=== PATIENT | female | born 1980 | race Caucasian/White ===

== ENCOUNTER → 2018-03-10 | Outpatient (CLI) | payer OTHER | END | disposition home or self-care (01) | LOC: WOUND 13:22 | PROVIDERS: ATTEND Family Medicine | DX: L97.212 Non-pressure chronic ulcer of right calf with fat layer exposed (principal); Z87.891 Personal history of nicotine dependence | CPT/HCPCS: 11100; 87070; 87077; 87186; 87205; 97602; 99215 ==

== ENCOUNTER → 2018-03-17 | Outpatient (CLI) | payer OTHER | END | disposition home or self-care (01) | LOC: WOUND 09:13 | PROVIDERS: ATTEND Family Medicine | DX: L97.212 Non-pressure chronic ulcer of right calf with fat layer exposed (principal); I87.2 Venous insufficiency (chronic) (peripheral); Z87.891 Personal history of nicotine dependence | CPT/HCPCS: 87070; 87077; 87186; 87205; 97597; 97598 ==

== ENCOUNTER → 2018-03-24 | Outpatient (CLI) | payer OTHER | END | disposition home or self-care (01) | LOC: WOUND 09:29 | PROVIDERS: ATTEND Family Medicine | DX: L97.212 Non-pressure chronic ulcer of right calf with fat layer exposed (principal); I87.2 Venous insufficiency (chronic) (peripheral); Z87.891 Personal history of nicotine dependence | CPT/HCPCS: 11042; 11045 ==

== ENCOUNTER → 2018-04-07 | Outpatient (CLI) | payer OTHER | END | disposition home or self-care (01) | LOC: WOUND 09:00 | PROVIDERS: ATTEND Family Medicine | DX: L97.212 Non-pressure chronic ulcer of right calf with fat layer exposed (principal); I87.2 Venous insufficiency (chronic) (peripheral); Z87.891 Personal history of nicotine dependence | CPT/HCPCS: 11042; 11045 ==

== ENCOUNTER → 2018-04-14 | Outpatient (CLI) | payer OTHER | END | disposition home or self-care (01) | LOC: WOUND 09:59 | PROVIDERS: ATTEND Family Medicine | DX: L97.212 Non-pressure chronic ulcer of right calf with fat layer exposed (principal); I87.2 Venous insufficiency (chronic) (peripheral); Z87.891 Personal history of nicotine dependence | CPT/HCPCS: 11042; 11045 ==

== ENCOUNTER → 2018-04-21 | Outpatient (CLI) | payer OTHER | END | disposition home or self-care (01) | LOC: WOUND 09:11 | PROVIDERS: ATTEND Family Medicine | DX: L97.212 Non-pressure chronic ulcer of right calf with fat layer exposed (principal); I87.2 Venous insufficiency (chronic) (peripheral); Z87.891 Personal history of nicotine dependence | CPT/HCPCS: 97597; 97598 ==

== ENCOUNTER → 2018-04-28 | Outpatient (CLI) | payer OTHER | END | disposition home or self-care (01) | LOC: WOUND 09:04 | PROVIDERS: ATTEND Family Medicine | DX: L97.212 Non-pressure chronic ulcer of right calf with fat layer exposed (principal); I87.2 Venous insufficiency (chronic) (peripheral); Z87.891 Personal history of nicotine dependence | CPT/HCPCS: 99214 ==

== ENCOUNTER → 2018-05-12 | Outpatient (CLI) | payer OTHER | END | disposition home or self-care (01) | LOC: WOUND 08:13 | PROVIDERS: ATTEND Family Medicine | DX: L97.212 Non-pressure chronic ulcer of right calf with fat layer exposed (principal); I87.2 Venous insufficiency (chronic) (peripheral); Z87.891 Personal history of nicotine dependence | CPT/HCPCS: 99214 ==

== ENCOUNTER → 2018-05-19 | Outpatient (CLI) | payer OTHER | END | disposition home or self-care (01) | LOC: WOUND 08:27 | PROVIDERS: ATTEND Family Medicine | DX: L97.212 Non-pressure chronic ulcer of right calf with fat layer exposed (principal); I87.2 Venous insufficiency (chronic) (peripheral); Z87.891 Personal history of nicotine dependence | CPT/HCPCS: 99213 ==

== ENCOUNTER 2018-05-22 10:56 | Outpatient (CLI) | payer OTHER | END 2018-05-22 23:59 | disposition home or self-care (01) | LOC: WOUND 10:56 | PROVIDERS: ATTEND Internal Medicine | DX: L97.212 Non-pressure chronic ulcer of right calf with fat layer exposed (principal); I87.2 Venous insufficiency (chronic) (peripheral); Z87.891 Personal history of nicotine dependence | CPT/HCPCS: 87070; 87077; 87186; 87205; 97597; 97598 ==

== ENCOUNTER 2018-05-26 08:35 | Outpatient (CLI) | payer OTHER ==
[2018-05-26] MEDS ORDERED: SULF1TAB24 PO (10:30)
[2018-05-26] MEDS ORDERED: GABA300C10 PO (10:30)
[2018-05-26] MEDS ORDERED: TRAM50TA2 PO (10:30)
== END 2018-05-26 23:59 | disposition home or self-care (01) ==
LOC: WOUND 08:35
PROVIDERS: ATTEND Family Medicine
DX: L97.212 Non-pressure chronic ulcer of right calf with fat layer exposed (principal); S81.801D Unspecified open wound, right lower leg, subsequent encounter; I87.2 Venous insufficiency (chronic) (peripheral); X58.XXXD Exposure to other specified factors, subsequent encounter; Z87.891 Personal history of nicotine dependence
CPT/HCPCS: 97597; 97598

== ENCOUNTER 2018-05-31 21:31 | Emergency (ER) | payer OTHER ==
[~2018-05-31] VITALS: Ht 162.6 cm; Wt 74.9 kg
[~2018-05-31 21:31] MED LIST: GABA300C10 PO; SULF1TAB24 PO; TRAM50TA2 PO
[2018-05-31 21:38] VITALS: BP 111/75
--- NOTE | 2018-05-31 22:19 | NUR ---
WOUND UNPACKED AND IRRIGATED WITH STERILE SALINE. PT HAD WOUND REPACKED WITH 1/4 INCH GAUZE, WITH 3 INCHES IN LENGTH. PT TOLERATED WELL. VSS
== END 2018-05-31 22:27 | disposition home or self-care (01) ==
LOC: ED 21:47
DX: L02.415 Cutaneous abscess of right lower limb (principal)
CPT/HCPCS: 99283

== ENCOUNTER → 2018-06-02 | Outpatient (CLI) | payer OTHER | END | disposition home or self-care (01) | LOC: WOUND 08:56 | PROVIDERS: ATTEND Family Medicine | DX: L97.212 Non-pressure chronic ulcer of right calf with fat layer exposed (principal); S81.801D Unspecified open wound, right lower leg, subsequent encounter; I87.2 Venous insufficiency (chronic) (peripheral); Z87.891 Personal history of nicotine dependence; X58.XXXD Exposure to other specified factors, subsequent encounter | CPT/HCPCS: 97597; 97598 ==

== ENCOUNTER → 2018-06-05 | Outpatient (CLI) | payer OTHER | END | disposition home or self-care (01) | LOC: WOUND 11:11 | PROVIDERS: ATTEND Internal Medicine | DX: L97.212 Non-pressure chronic ulcer of right calf with fat layer exposed (principal); I87.2 Venous insufficiency (chronic) (peripheral); Z87.891 Personal history of nicotine dependence | CPT/HCPCS: 99213 ==

== ENCOUNTER → 2018-06-07 | Outpatient (CLI) | payer OTHER | END | disposition home or self-care (01) | LOC: WOUND 08:15 | PROVIDERS: ATTEND Internal Medicine Cardiovascular Disease | DX: L97.212 Non-pressure chronic ulcer of right calf with fat layer exposed (principal); I87.2 Venous insufficiency (chronic) (peripheral); Z87.891 Personal history of nicotine dependence | CPT/HCPCS: 99213 ==

== ENCOUNTER → 2018-06-09 | Outpatient (CLI) | payer OTHER | END | disposition home or self-care (01) | LOC: WOUND 15:28 | PROVIDERS: ATTEND Family Medicine | DX: L97.212 Non-pressure chronic ulcer of right calf with fat layer exposed (principal); I87.2 Venous insufficiency (chronic) (peripheral); Z87.891 Personal history of nicotine dependence | CPT/HCPCS: 11042; 11045 ==

== ENCOUNTER → 2018-06-12 | Outpatient (CLI) | payer OTHER | END | disposition home or self-care (01) | LOC: WOUND 08:20 | PROVIDERS: ATTEND Family Medicine | DX: L97.212 Non-pressure chronic ulcer of right calf with fat layer exposed (principal); I87.2 Venous insufficiency (chronic) (peripheral); Z87.891 Personal history of nicotine dependence | CPT/HCPCS: 99214 ==

== ENCOUNTER → 2018-06-14 | Outpatient (CLI) | payer OTHER | END | disposition home or self-care (01) | LOC: WOUND 08:30 | PROVIDERS: ATTEND Internal Medicine Cardiovascular Disease | DX: L97.212 Non-pressure chronic ulcer of right calf with fat layer exposed (principal); I87.2 Venous insufficiency (chronic) (peripheral); Z87.891 Personal history of nicotine dependence | CPT/HCPCS: 99213 ==

== ENCOUNTER → 2018-06-16 | Outpatient (CLI) | payer OTHER | END | disposition home or self-care (01) | LOC: WOUND 14:51 | PROVIDERS: ATTEND Family Medicine | DX: L97.212 Non-pressure chronic ulcer of right calf with fat layer exposed (principal); S81.801D Unspecified open wound, right lower leg, subsequent encounter; I87.2 Venous insufficiency (chronic) (peripheral); Z87.891 Personal history of nicotine dependence; X58.XXXD Exposure to other specified factors, subsequent encounter | CPT/HCPCS: 97597; 97598 ==

== ENCOUNTER → 2018-06-19 | Outpatient (CLI) | payer OTHER | END | disposition home or self-care (01) | LOC: WOUND 08:45 | PROVIDERS: ATTEND Family Medicine | DX: L97.212 Non-pressure chronic ulcer of right calf with fat layer exposed (principal); I87.2 Venous insufficiency (chronic) (peripheral); Z87.891 Personal history of nicotine dependence | CPT/HCPCS: 99213 ==

== ENCOUNTER 2018-06-21 11:20 | Outpatient (CLI) | payer OTHER | END 2018-06-21 23:59 | disposition home or self-care (01) | LOC: CFH 11:20 | PROVIDERS: ATTEND Surgery | DX: L97.212 Non-pressure chronic ulcer of right calf with fat layer exposed (principal); I87.2 Venous insufficiency (chronic) (peripheral); Z87.891 Personal history of nicotine dependence | CPT/HCPCS: 99214 ==

== ENCOUNTER 2018-06-23 08:59 | Outpatient (CLI) | payer OTHER | END 2018-06-23 23:59 | disposition home or self-care (01) | LOC: WOUND 08:59 | PROVIDERS: ATTEND Family Medicine | DX: L97.212 Non-pressure chronic ulcer of right calf with fat layer exposed (principal); S81.802D Unspecified open wound, left lower leg, subsequent encounter; I87.2 Venous insufficiency (chronic) (peripheral); Z87.891 Personal history of nicotine dependence; X58.XXXD Exposure to other specified factors, subsequent encounter | CPT/HCPCS: 99214 ==

== ENCOUNTER 2018-06-26 15:04 | Outpatient (CLI) | payer OTHER | END 2018-06-26 23:59 | disposition home or self-care (01) | LOC: WOUND 15:04 | PROVIDERS: ATTEND Internal Medicine | DX: L97.212 Non-pressure chronic ulcer of right calf with fat layer exposed (principal); I87.2 Venous insufficiency (chronic) (peripheral); Z87.891 Personal history of nicotine dependence | CPT/HCPCS: 99213 ==

== ENCOUNTER → 2018-06-28 | Outpatient (CLI) | payer OTHER | END | disposition home or self-care (01) | LOC: WOUND 09:39 | PROVIDERS: ATTEND Internal Medicine | DX: L97.212 Non-pressure chronic ulcer of right calf with fat layer exposed (principal); I87.2 Venous insufficiency (chronic) (peripheral); Z87.891 Personal history of nicotine dependence | CPT/HCPCS: 99213 ==

== ENCOUNTER 2018-06-30 10:34 | Outpatient (CLI) | payer OTHER | END 2018-06-30 23:59 | disposition home or self-care (01) | LOC: WOUND 10:34 | PROVIDERS: ATTEND Family Medicine | DX: L97.212 Non-pressure chronic ulcer of right calf with fat layer exposed (principal); I87.2 Venous insufficiency (chronic) (peripheral); Z87.891 Personal history of nicotine dependence | CPT/HCPCS: 99215 ==

== ENCOUNTER → 2018-07-03 | Outpatient (CLI) | payer OTHER | END | disposition home or self-care (01) | LOC: WOUND 08:10 | PROVIDERS: ATTEND Internal Medicine | DX: L97.212 Non-pressure chronic ulcer of right calf with fat layer exposed (principal); L03.115 Cellulitis of right lower limb; I87.2 Venous insufficiency (chronic) (peripheral); Z87.891 Personal history of nicotine dependence | CPT/HCPCS: 99213 ==

== ENCOUNTER → 2018-07-05 | Outpatient (CLI) | payer OTHER | END | disposition home or self-care (01) | LOC: WOUND 09:40 | PROVIDERS: ATTEND Internal Medicine | DX: L97.212 Non-pressure chronic ulcer of right calf with fat layer exposed (principal); L03.115 Cellulitis of right lower limb; I87.2 Venous insufficiency (chronic) (peripheral); Z87.891 Personal history of nicotine dependence | CPT/HCPCS: 99213 ==

== ENCOUNTER 2018-07-07 08:07 | Outpatient (CLI) | payer OTHER | END 2018-07-07 23:59 | disposition home or self-care (01) | LOC: WOUND 08:07 | PROVIDERS: ATTEND Family Medicine | DX: L97.212 Non-pressure chronic ulcer of right calf with fat layer exposed (principal); L03.115 Cellulitis of right lower limb; I87.2 Venous insufficiency (chronic) (peripheral); Z87.891 Personal history of nicotine dependence | CPT/HCPCS: 11042; 97597; 97598 ==

== ENCOUNTER → 2018-07-10 | Outpatient (CLI) | payer OTHER | END | disposition home or self-care (01) | LOC: WOUND 09:06 | PROVIDERS: ATTEND Internal Medicine | DX: L97.212 Non-pressure chronic ulcer of right calf with fat layer exposed (principal); I87.2 Venous insufficiency (chronic) (peripheral); Z87.891 Personal history of nicotine dependence | CPT/HCPCS: 99213 ==

== ENCOUNTER → 2018-07-12 | Outpatient (CLI) | payer OTHER | END | disposition home or self-care (01) | LOC: WOUND 08:59 | PROVIDERS: ATTEND Internal Medicine | DX: L97.212 Non-pressure chronic ulcer of right calf with fat layer exposed (principal); I87.2 Venous insufficiency (chronic) (peripheral); Z87.891 Personal history of nicotine dependence | CPT/HCPCS: 99214 ==

== ENCOUNTER → 2018-07-14 | Outpatient (CLI) | payer OTHER | END | disposition home or self-care (01) | LOC: WOUND 09:32 | PROVIDERS: ATTEND Family Medicine | DX: L97.212 Non-pressure chronic ulcer of right calf with fat layer exposed (principal); I87.2 Venous insufficiency (chronic) (peripheral); Z87.891 Personal history of nicotine dependence | CPT/HCPCS: 97597; 97598 ==

== ENCOUNTER → 2018-07-18 | Outpatient (CLI) | payer OTHER | END | disposition home or self-care (01) | LOC: WOUND 09:00 | PROVIDERS: ATTEND Nurse Practitioner Family | DX: L97.212 Non-pressure chronic ulcer of right calf with fat layer exposed (principal); I87.2 Venous insufficiency (chronic) (peripheral); Z87.891 Personal history of nicotine dependence | CPT/HCPCS: 99213 ==

== ENCOUNTER 2018-07-21 10:00 | Outpatient (CLI) | payer OTHER | END 2018-07-21 23:59 | disposition home or self-care (01) | LOC: WOUND 10:00 | PROVIDERS: ATTEND Family Medicine | DX: L97.212 Non-pressure chronic ulcer of right calf with fat layer exposed (principal); L03.115 Cellulitis of right lower limb; I87.2 Venous insufficiency (chronic) (peripheral); Z87.891 Personal history of nicotine dependence | CPT/HCPCS: 97597 ==

== ENCOUNTER → 2018-07-25 | Outpatient (CLI) | payer OTHER | END | disposition home or self-care (01) | LOC: WOUND 11:06 | PROVIDERS: ATTEND Internal Medicine Cardiovascular Disease | DX: L97.212 Non-pressure chronic ulcer of right calf with fat layer exposed (principal); I87.2 Venous insufficiency (chronic) (peripheral); Z87.891 Personal history of nicotine dependence | CPT/HCPCS: 99213 ==

== ENCOUNTER → 2018-07-28 | Outpatient (CLI) | payer OTHER | END | disposition home or self-care (01) | LOC: WOUND 08:46 | PROVIDERS: ATTEND Family Medicine | DX: L97.212 Non-pressure chronic ulcer of right calf with fat layer exposed (principal); S81.801D Unspecified open wound, right lower leg, subsequent encounter; L03.115 Cellulitis of right lower limb; I87.2 Venous insufficiency (chronic) (peripheral); Z87.891 Personal history of nicotine dependence; X58.XXXD Exposure to other specified factors, subsequent encounter | CPT/HCPCS: 97597 ==

== ENCOUNTER → 2018-08-04 | Outpatient (CLI) | payer OTHER | END | disposition home or self-care (01) | LOC: WOUND 09:39 | PROVIDERS: ATTEND Family Medicine | DX: L97.212 Non-pressure chronic ulcer of right calf with fat layer exposed (principal); S81.801D Unspecified open wound, right lower leg, subsequent encounter; L03.115 Cellulitis of right lower limb; I87.2 Venous insufficiency (chronic) (peripheral); Z87.891 Personal history of nicotine dependence; X58.XXXD Exposure to other specified factors, subsequent encounter | CPT/HCPCS: 97597 ==

== ENCOUNTER → 2018-08-18 | Outpatient (CLI) | payer OTHER | END | disposition home or self-care (01) | LOC: WOUND 10:26 | PROVIDERS: ATTEND Family Medicine | DX: L97.212 Non-pressure chronic ulcer of right calf with fat layer exposed (principal); S81.801D Unspecified open wound, right lower leg, subsequent encounter; I87.2 Venous insufficiency (chronic) (peripheral); Z87.891 Personal history of nicotine dependence; X58.XXXD Exposure to other specified factors, subsequent encounter | CPT/HCPCS: 97597 ==

== ENCOUNTER → 2018-08-25 | Outpatient (CLI) | payer OTHER | END | disposition home or self-care (01) | LOC: WOUND 10:10 | PROVIDERS: ATTEND Family Medicine | DX: L97.212 Non-pressure chronic ulcer of right calf with fat layer exposed (principal); S81.801D Unspecified open wound, right lower leg, subsequent encounter; I87.2 Venous insufficiency (chronic) (peripheral); Z87.891 Personal history of nicotine dependence; X58.XXXD Exposure to other specified factors, subsequent encounter | CPT/HCPCS: 97597 ==

== ENCOUNTER 2018-09-01 09:57 | Outpatient (CLI) | payer OTHER | END 2018-09-01 23:59 | disposition home or self-care (01) | LOC: WOUND 09:57 | PROVIDERS: ATTEND Family Medicine | DX: L97.212 Non-pressure chronic ulcer of right calf with fat layer exposed (principal); L03.115 Cellulitis of right lower limb; I87.2 Venous insufficiency (chronic) (peripheral); Z87.891 Personal history of nicotine dependence | CPT/HCPCS: 97597 ==

== ENCOUNTER 2018-09-08 11:00 | Outpatient (CLI) | payer OTHER | END 2018-09-08 23:59 | disposition home or self-care (01) | LOC: WOUND 11:00 | PROVIDERS: ATTEND Family Medicine | DX: L97.212 Non-pressure chronic ulcer of right calf with fat layer exposed (principal); L03.115 Cellulitis of right lower limb; I87.2 Venous insufficiency (chronic) (peripheral); Z87.891 Personal history of nicotine dependence | CPT/HCPCS: 97597 ==

== ENCOUNTER → 2018-09-15 | Outpatient (CLI) | payer OTHER | END | disposition home or self-care (01) | LOC: WOUND 09:28 | PROVIDERS: ATTEND Family Medicine | DX: L97.212 Non-pressure chronic ulcer of right calf with fat layer exposed (principal); L03.115 Cellulitis of right lower limb; I87.2 Venous insufficiency (chronic) (peripheral); Z87.891 Personal history of nicotine dependence | CPT/HCPCS: 97597 ==

== ENCOUNTER → 2018-09-22 | Outpatient (CLI) | payer OTHER | END | disposition home or self-care (01) | LOC: WOUND 09:19 | PROVIDERS: ATTEND Family Medicine | DX: L97.212 Non-pressure chronic ulcer of right calf with fat layer exposed (principal); I87.2 Venous insufficiency (chronic) (peripheral); L03.115 Cellulitis of right lower limb; Z87.891 Personal history of nicotine dependence | CPT/HCPCS: 99214 ==

== ENCOUNTER → 2018-10-06 | Outpatient (CLI) | payer OTHER | END | disposition home or self-care (01) | LOC: WOUND 09:02 | PROVIDERS: ATTEND Family Medicine | DX: L97.212 Non-pressure chronic ulcer of right calf with fat layer exposed (principal); L03.115 Cellulitis of right lower limb; I87.2 Venous insufficiency (chronic) (peripheral); Z87.891 Personal history of nicotine dependence | CPT/HCPCS: 99213 ==

== ENCOUNTER → 2018-10-20 | Outpatient (CLI) | payer OTHER | END | disposition home or self-care (01) | LOC: WOUND 10:05 | PROVIDERS: ATTEND Internal Medicine Cardiovascular Disease | DX: L97.212 Non-pressure chronic ulcer of right calf with fat layer exposed (principal); I87.2 Venous insufficiency (chronic) (peripheral); L03.115 Cellulitis of right lower limb; Z87.891 Personal history of nicotine dependence | CPT/HCPCS: 99212 ==

== ENCOUNTER → 2018-11-03 | Outpatient (CLI) | payer OTHER | END | disposition home or self-care (01) | LOC: WOUND 09:33 | PROVIDERS: ATTEND Family Medicine | DX: L97.218 Non-pressure chronic ulcer of right calf with other specified severity (principal); L03.115 Cellulitis of right lower limb; I87.2 Venous insufficiency (chronic) (peripheral); Z87.891 Personal history of nicotine dependence | CPT/HCPCS: 99212 ==